=== PATIENT | female | born 1995 | race African-American/Black ===

== ENCOUNTER → 2018-12-30 19:33 | Outpatient (CLI) | payer OTHER, SELFPAY ==
--- NOTE | 2018-12-30 | DI.MRI.S_ITS ---
PROCEDURE: MR KNEE RT WO CON INDICATIONS: RECURRENT DISLOCATION TECHNIQUE: Noncontrast sagittal PD fast spin echo and T2 fast spin echo with fat saturation, sagittal 3-D FLASH with fat saturation; coronal T1 spin echo and PD fast spin echo with fat saturation, and axial PD fast spin echo with fat saturation through the knee. COMPARISON: None. FINDINGS: Image quality: Excellent. Menisci: There is degenerative signal within the body of the lateral meniscus without a discrete tear involving an articular surface. There is slight peripheral extrusion of the lateral meniscus. The medial meniscus demonstrates normal signal and morphology. The meniscal root ligaments appear intact. Cruciate ligaments: The anterior and posterior cruciate ligaments appear intact. Medial structures: The medial collateral ligament appears intact. The semimembranosus tendon insertions and meniscocapsular junction appear intact. Visualized portions of the pes anserinus tendons appear intact without associated bursal fluid collections. Lateral structures: The lateral collateral ligament, long and short heads of the biceps femoris tendon appear intact. The popliteus tendon appears intact. Iliotibial band appears normal. Anterior structures: The quadriceps and patellar tendons appear intact. There is slight lateral shift of the patella. The medial retinaculum appears attenuated along its patellar attachment suggestive of mild partial tearing. No edema in the infrapatellar fat pad. Bones and cartilage: No bone marrow contusions or fractures. There is mild cartilage thinning in the patellofemoral compartment with superficial chondral fissuring along the patella. The cartilage in the medial and lateral compartments appear preserved in thickness with mild superficial chondral fraying. There is mild osteophytosis in the lateral compartment and minimal osteophytosis in the medial compartment. Joint space: There is moderate-sized joint effusion. There is a small Marsh's cyst. Normal appearing synovial plicae are incidentally noted. IMPRESSION: 1. Irregularity of the medial retinaculum along its patellar attachment suggestive of mild partial tearing. The findings reflect sequelae of mild transient lateral subluxation of the patella. 2. Moderate-sized joint effusion. 3. Mild cartilage degeneration including superficial chondral fissuring along the patella. 4. Mild osteophytosis in the lateral compartment. There is mild degenerative signal in the lateral meniscus and slight peripheral extrusion without a discrete meniscal tear. Dictated by: Servando Alvarenga M.D. on 01/04/2019 at 11:24 Approved by: Servando Alvarenga M.D. on 01/04/2019 at 11:46
== END ==
PROVIDERS: Visit Provider General Practice
DX: M24.461 Recurrent dislocation, right knee (principal); M25.461 Effusion, right knee; M71.22 Synovial cyst of popliteal space [Baker], left knee
CPT/HCPCS: 73721